=== PATIENT | female | born 1960 | race Caucasian/White ===

== ENCOUNTER 2023-10-27 09:45 | Emergency (ER) | payer BC, SELFPAY ==
[2023-10-27 09:47] VITALS: BP 160/100
[2023-10-27 10:56] VITALS: BMI 22.6
[2023-10-27 11:02] VITALS: BP 130/71
--- NOTE | 2023-10-27 11:06 | ED.GENMED ---
History of Present Illness
General
Chief Complaint: Cough
Time Seen by Provider: 10/27/23 10:19
History of Present Illness
History of Present Illness:
63-year-old female with history of lung CA (s/p chemo, radiation, and immunotherapy) presenting for hemoptysis. Patient reports symptoms started this morning. She had a slight cough, with expectoration of bright red blood. Denies ever having this
in the past. She is not on any blood thinners. Reports that she had a PET scan in April 2023, negative for malignancy. She denies any present chest pain or difficulty breathing. She denies any abdominal pain. She has not been having
significant cough or fever. She follows with [facility]. Denies acute medical complaints
Past History
Past History
ED Past Medical History: GERD and Other (chronic low back pain)
ED Past Surgical History: None
Social History
Tobacco: Smoker
Alcohol: Occasional
Personal: Other (Seperated)
Living: alone
Employment: Employed ([employer])
Phy Exam
Physical Exam
Physical Exam:
GENERAL: Alert , in no apparent distress
EYE: pupils equal and reactive
NECK: Supple, no significant adenopathy.
ENT: o/p clr, mmm.
CARDIAC: Regular rate and rhythm .
LUNGS: Clear breath sounds bilaterally, no acute respiratory distress, no wheezes/rales/rhonchi
ABDOMEN: Soft, without focal tenderness, no r/g
NEUROLOGICAL: Alert and oriented, no focal neuro deficits
SKIN: Warm and dry, skin intact.
MUSCULOSKELETAL: No edema, well perfused.
PSYCH: Normal and appropriate interaction.
Course
Orders/Labs/Results
Orders:
Orders
10/27/23 10:44
Electrocardiogram (*1) Stat
Reason for Study: Other
Other Reason for Exam: chest pain
CT Chest Pe Study Urgent
Comment:
Reason For Exam: hemoptysis, hx L-lung CA
EKG- Treatment ONCE
10/27/23 10:55
Complete Blood Count/With Diff Urgent
Comprehensive Metabolic Panel Urgent
PTT Urgent
Prothrombin Time Urgent
Abnormal Lab Results
10/27/23
10:55
Hct 35.1 L %
(37.0-47.0)
Absolute Lymphs (auto) 0.8 L 10^3/uL
(1.2-3.4)
Neutrophils % 77.3 H %
(42.2-75.2)
Lymphocytes % 14.2 L %
(20.5-51.1)
10/27/23 10:55
10/27/23 10:55
Vital Signs
Initial and Last Documented VS:
Initial Vital Signs
Temp Pulse Resp BP Pulse Ox
99.3 F 116 16 160/100 98
10/27/23 09:47 10/27/23 09:47 10/27/23 09:47 10/27/23 09:47 10/27/23 09:47
Last Documented Vital Signs
Temp Pulse Resp BP Pulse Ox
99.3 F 108 24 115/63 95
10/27/23 09:47 10/27/23 12:36 10/27/23 12:36 10/27/23 12:00 10/27/23 12:15
MDM/Problems Addressed
MDM/Problems Addressed:
63-year-old female with prior history of lung CA presenting for hemoptysis. Vital signs on arrival are significant for hypertension.
On exam, patient well-appearing, resting comfortably, no acute distress or disc. Benign cardiac and pulmonary exam. However given prior history of malignancy with hemoptysis prior to arrival, immediate concern for PE versus recurrence of lung CA.
This visit will obtain laboratory analysis and CT imaging. EKG obtained, nonischemic
13:40 -patient's labs are unremarkable. CT without evidence of PE or recurrence of malignancy. Normal hemoglobin. Patient without any additional episodes of hemoptysis. At this time, likely bronchial irritation, possibly from prior radiation in
the past. Remains hemodynamically stable, feel stable for discharge with continued outpatient oncologic follow-up. Patient has a PET scan next week. Patient feels comfortable with plan. Strict return precautions communicated and patient
verbalized understanding
*EKG
Interpreted by ED Provider?: Yes
EKG Intrepretation Date: 10/27/23
EKG Intrepretation Time: 11:09
Interpretation: normal
Comparison EKG: no changes
Heart Rate: 73
Rate: normal
Rhythm: sinus
[place]: normal axis
Interval: normal interval
QRS Pattern: normal QRS
Ischemia: no ischemia
*Critical Care Note
Total Time (30-74mins, 75-104mins- exclusive of procedures): Not Applicable
ED Attending Note
-
Portions of this chart may have been created with voice recognition software.� Occasional wrong word or��sound alike� substitutions may have occurred due to the inherent limitations of voice recognition software.
Discharge Plan
Departure
Prescriptions:
No Action
lorazepam [Ativan] 0.5 mg Tablet
0.5 mg PO PRN PRN (Reason: insomnia/anxiety)
ibuprofen [Advil] 200 mg Tablet
200 mg PO Q8H PRN (Reason: pain)
vitamin B complex Tablet
1 tab PO DAILY
cholecalciferol (vitamin D3) [Vitamin D3] 25 mcg (1,000 unit) Capsule
25 mcg PO DAILY
calcium lactate 84 mg (648 mg) Tablet
168 mg PO DAILY
Probiotic 3 billion cell Capsule
3,000 mmu cells PO DAILY
cetirizine [Zyrtec] 10 mg Tablet
10 mg PO HS
Referrals:
Pearl Pate CRNP [Family Provider] -
Interventions
Interventions:
*Risk Screen - Suicide Last Done: 10/27/23 09:47
*General Assessment Last Done: 10/27/23 09:47
*Neglect/Abuse Screening Last Done: 10/27/23 09:47
ED- Fall Risk Assessment Last Done: 10/27/23 10:50
*ED COVID-19 Vaccine History Last Done: 10/27/23 11:01
ED- Pulmonary Assessment Last Done: 10/27/23 10:50
Discharge Date and Time
Print Language: ALGERIAN
[2023-10-27 11:08] LABS: % Basophils 0.5 % (0-2); % Eosinophils 0.7 % (0-6); % Immature Granulocytes 0.2 % (0-0.5); % Lymphocytes 14.2 % (20.5-51.1); % Monocytes 7.1 % (1.7-9.3); % Neutrophils 77.3 % (42.2-75.2); Absolute Lymphocytes 0.8 10^3/uL (1.2-3.4); Absolute Monocytes 0.4 10^3/uL (0.1-0.6); Absolute Neutrophils 4.6 10^3/uL (1.4-6.5); Hematocrit 35.1 % (37.0-47.0); Hemoglobin 12.1 g/dL (12.0-16.0); Mean Corp Hgb Conc. 34.5 g/dL (33.0-37.0); Mean Corpuscular Hgb 28.3 pg (27.0-31.0); Mean Platelet Volume 8.6 fL (7.4-10.4); Nucleated Red Blood Cells % 0 %; Platelet Count 221 10^3/uL (130-400); Red Blood Cell Count 4.28 10^6/uL (4.20-5.40); White Blood Cell Count 5.9 10^3/uL (4.8-10.8)
[2023-10-27 11:18] LABS: APTT 27.3 Sec (23.4-35.0); INR 1.05; PT 13.7 Sec (11.4-14.6)
[2023-10-27 11:29] LABS: ALT (SGPT) 23 U/L (0-35); AST (SGOT) 33 U/L (14-36); Albumin 4.4 g/dl (3.5-5.0); Alkaline Phosphatase 86 U/L (38-126); Blood Urea Nitrogen 13 mg/dl (7-17); Calcium 9.5 mg/dl (8.4-10.2); Carbon Dioxide 27 mmol/L (22-30); Chloride 101 mmol/L (98-107); Estimated Creatinine Clearance 72 ml/min; Glucose 98 mg/dl (70-99); Potassium 4.5 mmol/L (3.5-5.1); Sodium 135 mmol/L (135-145); Total Bilirubin 0.5 mg/dl (0.2-1.3); Total Protein 7.1 g/dl (6.3-8.2); eGFR > 60.00
[2023-10-27 12:00] VITALS: BP 115/63
[2023-10-27 13:00] VITALS: BP 113/67
[2023-10-27 14:00] VITALS: BP 130/63
== END 2023-10-27 14:15 | disposition home or self-care (01) ==
LOC: EMR 09:45
PROVIDERS: EMERGENCY PHYSICIAN Student in an Organized Health Care Education/Training Program; FAMILY PHYSICIAN Nurse Practitioner
DX: R04.2 Hemoptysis (principal); F17.200 Nicotine dependence, unspecified, uncomplicated
CPT/HCPCS: 99285; 71275; 80053; 85025; 85610; 85730; 93005; Q9967

== ENCOUNTER → 2023-11-04 08:12 | Outpatient (REF) | payer BC, SELFPAY | LOC: PET 08:12 | PROVIDERS: ATTENDING PHYSICIAN Internal Medicine Hematology & Oncology | DX: C34.12 Malignant neoplasm of upper lobe, left bronchus or lung (principal) | CPT/HCPCS: 78815; A9552 ==

== ENCOUNTER → 2023-12-23 14:26 | Outpatient (REF) | payer BC, SELFPAY | LOC: HWRCS 14:26 | PROVIDERS: ATTENDING PHYSICIAN Nurse Practitioner | DX: I70.90 Unspecified atherosclerosis (principal) | CPT/HCPCS: 93306 ==

== ENCOUNTER → 2024-03-07 09:22 | Outpatient (REF) | payer BC, SELFPAY | LOC: PET 09:22 | PROVIDERS: ATTENDING PHYSICIAN Internal Medicine Hematology & Oncology | DX: C34.12 Malignant neoplasm of upper lobe, left bronchus or lung (principal) | CPT/HCPCS: 78815; A9552 ==

== ENCOUNTER → 2024-03-28 07:52 | Outpatient (REF) | payer BC, SELFPAY | LOC: HWRAD 07:52 | PROVIDERS: ATTENDING PHYSICIAN Surgery; REFERRING PHYSICIAN Internal Medicine Hematology & Oncology | DX: C34.12 Malignant neoplasm of upper lobe, left bronchus or lung (principal) | CPT/HCPCS: 71260; Q9967 ==

== ENCOUNTER → 2024-06-05 14:30 | Outpatient (REF) | payer BC, SELFPAY | LOC: HWWDC 14:30 | PROVIDERS: ATTENDING PHYSICIAN Nurse Practitioner Family | DX: Z12.31 Encounter for screening mammogram for malignant neoplasm of breast (principal) | CPT/HCPCS: 77063; 77067 ==

== ENCOUNTER → 2024-08-09 14:25 | Outpatient (REF) | payer BC, SELFPAY | LOC: MRI 14:25 | PROVIDERS: ATTENDING PHYSICIAN Psychiatry & Neurology Neurology; FAMILY PHYSICIAN Internal Medicine | DX: G93.5 Compression of brain (principal) | CPT/HCPCS: 70553; 72141; A9575 ==

== ENCOUNTER 2025-02-16 16:26 | Emergency (ER) | payer BC, MEDICARE, SELFPAY ==
[2025-02-16 16:33] VITALS: BP 145/91
[2025-02-16 16:52] LABS: Hematocrit 36.1 % (37.0-47.0); Hemoglobin 11.9 g/dL (12.0-16.0); Mean Corp Hgb Conc. 33.0 g/dL (33.0-37.0); Mean Corpuscular Volume 88.5 fL (81.0-99.0); Nucleated Red Blood Cells % 0 %; Platelet Count 219 10^3/uL (130-400); Red Cell Dist. Width 13.1 % (11.5-14.5)
[2025-02-16 17:00] VITALS: BMI 23.7
[2025-02-16 17:04] LABS: INR 0.99; PT 13.4 Sec (11.4-14.6)
[2025-02-16 17:16] LABS: ALT (SGPT) 26 U/L (0-35); AST (SGOT) 38 U/L (14-36); Albumin 4.5 g/dl (3.5-5.0); Alkaline Phosphatase 77 U/L (38-126); Blood Urea Nitrogen 12 mg/dl (7-17); Calcium 9.1 mg/dl (8.4-10.2); Carbon Dioxide 23 mmol/L (22-30); Chloride 103 mmol/L (98-107); Estimated Creatinine Clearance 71 ml/min; Glucose 109 mg/dl (70-99); Potassium 4.0 mmol/L (3.5-5.1); Sodium 135 mmol/L (135-145); Total Protein 7.0 g/dl (6.3-8.2); Troponin I 0.017 ng/ml; eGFR > 60.00
--- NOTE | 2025-02-16 17:16 | ED.GENMED ---
History of Present Illness
General
Chief Complaint: Heart Rate Problem
Source: patient
Exam Limitations: none
Time Seen by Provider: 02/16/25 16:59
History of Present Illness
History of Present Illness:
See MDM
Past History
Past History
ED Past Medical History: GERD and Other (chronic low back pain)
ED Past Surgical History: None
Social History
Tobacco: Smoker
Alcohol: Occasional
Personal: Other (Seperated)
Living: alone
Employment: Employed ([employer])
Phy Exam
Physical Exam
Physical Exam:
See MDM
Scores
[id number] Score for Afib Stroke Risk
Age in Years (65=0, 65-74=1, >/=75=2): 65-74
Sex (Female=+1): Female
Congestive Heart Failure History (Yes=+1): No
Hypertension History (Yes=+1): No
Stroke/TIA/Thromboembolism History (Yes=+2): No
Vascular Disease History (Yes=+1): No
Diabetes Mellitus (Yes=+1): No
Score: 2
Anticoagulation Recommendations: Recommend anticoagulation (as validated in nonvalvular fib)
Course
Orders/Labs/Results
Orders:
Orders
02/16/25 16:31
Electrocardiogram (*1) Urgent
Reason for Study: Chest Pain
EKG- Treatment ONCE
02/16/25 16:44
Complete Blood Count/With Diff Urgent
Comprehensive Metabolic Panel Urgent
Prothrombin Time Urgent
Troponin I Urgent
Abnormal Lab Results
02/16/25
16:44
RBC 4.08 L 10^6/uL
(4.20-5.40)
Hgb 11.9 L g/dL
(12.0-16.0)
Hct 36.1 L %
(37.0-47.0)
Absolute Lymphs (auto) 1.0 L 10^3/uL
(1.2-3.4)
Absolute Monos (auto) 0.7 H 10^3/uL
(0.1-0.6)
Lymphocytes % 16.5 L %
(20.5-51.1)
Monocytes % 10.4 H %
(1.7-9.3)
Glucose 109 H mg/dl
(70-99)
AST 38 H U/L
(14-36)
02/16/25 16:44
02/16/25 16:44
Vital Signs
Initial and Last Documented VS:
Initial Vital Signs
Temp Pulse Resp BP Pulse Ox
98.5 F 133 18 145/91 97
02/16/25 16:33 02/16/25 16:33 02/16/25 16:33 02/16/25 16:33 02/16/25 16:33
Last Documented Vital Signs
Temp Pulse Resp BP Pulse Ox
98.5 F 133 18 145/91 97
02/16/25 16:33 02/16/25 16:33 02/16/25 16:33 02/16/25 16:33 02/16/25 17:17
MDM/Problems Addressed
Differential Diagnosis Includes:
Note:
CHIEF COMPLAINT(S)
Palpitations with a heart rate increase to 183 beats per minute.
HISTORY OF PRESENT ILLNESS
The patient is a 64-year-old female with a past occurrence of palpitations and a rapid heart rate. The patient reports experiencing a sudden increase in heart rate to 183 beats per minute earlier today. She notes that the episode began after having
a meal and a cup of coffee, followed by activity at home. She describes trying to relax and self-manage using deep breathing to no avail. The heart rate remained elevated, decreasing to the 150s, but would elevate with movement. She denies recent
cardiology follow-up, except for a prior heart monitor showing no abnormal findings, and no medications taken other than past intermittent use of Lorazepam. She experiences anxiety prior to these episodes and attempts not to panic when they occur.
She did not use Lorazepam today. Currently, her heart rate decreased to the 130s. Previous episodes were managed with Lorazepam effectively.
CHRONIC MEDICAL CONDITIONS SIGNIFICANTLY AFFECTING CARE
Chronic conditions affecting care: Anxiety
SOCIAL DETERMINANTS OF HEALTH
The patient voluntarily stopped taking medications since 2017, which potentially impacts her healthcare management.
PHYSICAL EXAM
General: Alert, no acute distress.
Skin: Warm, dry.
Head: Normocephalic, atraumatic
Neck: Appears supple, trachea midline.
Eyes, Ears, Nose, Mouth, and Throat: Moist mucous membranes
Cardiovascular: No signs of cyanosis. Tachycardic and regular
Respiratory: Respirations are non-labored.
Abdomen: Non-distended
Musculoskeletal: No deformities. No leg edema
Neurological: No focal neurological deficit observed.
Psychiatric: Cooperative, appropriate mood and affect.
ELECTROCARDIOGRAM (EKG)
My independent EKG interpretation is a fast, normal sinus rate with minimal variation, indicating potential atrial flutter.
PLAN
Patient auto converted. Discussed case with cardiology
DIFFERENTIAL DIAGNOSIS
The Differential Diagnosis includes, in no particular order and is not limited to:
- Atrial flutter
- Atrial fibrillation
- Supraventricular tachycardia
- Sinus tachycardia
- Anxiety-induced tachycardia
- Hyperthyroidism
- Electrolyte imbalance-induced arrhythmia
- Paroxysmal supraventricular tachycardia
- Valvular heart disease
- Cardiomyopathy
SUMMARY OF ENCOUNTER
The patient presented to the emergency department with rapid heart rate and palpitations. Previous cardiac evaluations showed no structural heart issues, categorized as an electrical issue by the customs guard. The primary goal was to evaluate and
control the rapid heart rate with blood pressure medication and further explore underlying rhythm disturbances.
MANAGEMENT OF THE PATIENTS CARE WAS DISCUSSED WITH
Contact was made with the cardiology group associated with Dr. Ian Polanco for further recommendations regarding management and potential need for initiation of anticoagulation, given the rhythm concerns.
INDEPENDENT REVIEW OF LABS AND INTERPRETATION OF TESTS
Blood work pending for evaluation of potential electrolyte imbalance.
MEDICATION RECONCILIATION
- No current prescriptions or recent usage, previous sporadic use of Lorazepam.
MEDICAL DECISION MAKING
- Number and Complexity of Problems Addressed: Chronic conditions affecting care [Anxiety] The Differential Diagnosis includes, in no particular order and is not limited to: Atrial flutter, Atrial fibrillation, Supraventricular tachycardia, Sinus
tachycardia, Anxiety-induced tachycardia, Hyperthyroidism, Electrolyte imbalance-induced arrhythmia, Paroxysmal supraventricular tachycardia, Valvular heart disease, Cardiomyopathy.
- Data:
Category 1:
- My independent interpretation of EKG, showing a fast, normal sinus rate indicating potential atrial flutter.
Category 3:
- Discussion of management with the customs guard associated with Dr. Ian Polanco regarding patient�s care.
- Risk:
Care significantly affected by Social Determinants of Health: The patient�s decision to not use prescribed medications may influence care management and recurrence of tachycardia episodes.
EKG
My independent EKG interpretation is:
- Time of EKG: Not specified
- Rhythm: Undetermined
- Heart Rate: 134 beats per minute (Tachycardia)
- [place] Interval: Not specified
- QRS Duration: Not specified
- QT Interval: Not specified
- [place]: Normal
- Abnormalities: No ST elevation
CARE-UPDATE
02/16/25 - 17:27
The patients heart rate spontaneously converted to a normal sinus rhythm. Discussion with cardiology suggests potential diagnoses of SVT or AV-danna tachycardia, negating the need for anticoagulation at this point presents, per cardiology.
Cardiology recommends starting metoprolol 25 mg, which the patient is willing to take on an as-needed basis after discussing the risks and benefits. The patient is added to the cardiac callback tracker for a follow-up consultation with the
customs guard.
SUMMARY OF ENCOUNTER
The patient, a 64-year-old female, presented to the emergency department with rapid heart rate and palpitations. Previous cardiac evaluations indicated no structural heart issues, categorized as an electrical issue by the customs guard. Upon arrival,
an EKG was performed showing sinus tachycardia with concern for potential atrial flutter; however, the patients heart rate spontaneously converted to a normal sinus rhythm. Cardiology was consulted and suggested a more likely diagnosis of atrial
tachycardia rather than atrial fibrillation. It was determined that anticoagulation was not needed at this time. Management focused on heart rate control with potential initiation of metoprolol.
DISPOSITION
Discharge
ASSESSMENT
Likely atrial tachycardia with episodic palpitations.
MANAGEMENT OF THE PATIENTS CARE WAS DISCUSSED WITH
Discussion with the cardiology team regarding the management plan and the decision not to start anticoagulation.
PLAN
Prescribe metoprolol 25 mg on an as-needed basis. Recommend follow-up with cardiology.
INDEPENDENT REVIEW OF LABS AND INTERPRETATION OF TESTS
My independent EKG interpretation is sinus tachycardia, indicating potential atrial flutter.
PATIENT EDUCATION AND COUNSELING
The patient was informed about the nature of the condition, the potential diagnosis of atrial tachycardia, and the plan to use metoprolol as needed to control heart rate. The risks and benefits of the medication were discussed, emphasizing the
importance of follow-up care with the customs guard for ongoing management.
FOLLOW-UP INSTRUCTIONS
The patient is advised to schedule a follow-up with the customs guard for further evaluation and management.
MEDICATION RECONCILIATION
Prescribe metoprolol 25 mg to be taken as needed for heart rate control.
MEDICAL DECISION MAKING
- Complexity of Data Reviewed: Chronic conditions affecting care [Anxiety]. Differential Diagnosis includes atrial flutter, atrial fibrillation, supraventricular tachycardia, sinus tachycardia, anxiety-induced tachycardia, hyperthyroidism,
electrolyte imbalance-induced arrhythmia, paroxysmal supraventricular tachycardia, valvular heart disease, cardiomyopathy.
- Data:
Category 1: My independent interpretation of EKG, showing sinus tachycardia with potential atrial flutter.
Category 3: Discussion of management with the cardiology team regarding patients care.
- Risk: Prescription medication was prescribed, and care is significantly affected by Social Determinants of Health, as the patient has not been using prescribed medications consistently since 2017.
DIAGNOSIS
- Atrial Tachycardia: ICD-10 Code I47.1
*Pulse Oximetry
SaO2: 97
Oxygen Mode of Delivery: Room air
Patient hypoxic: no
*Critical Care Note
Total Time (30-74mins, 75-104mins- exclusive of procedures): Not Applicable
ED Attending Note
-
Portions of this chart may have been created with voice recognition software.� Occasional wrong word or��sound alike� substitutions may have occurred due to the inherent limitations of voice recognition software.
Discharge Plan
Departure
Patient Disposition: Home (Routine Discharge)
Date of Disposition: 02/16/25
Time of Disposition: 17:27
Patient with high blood pressure during this ER visit?: No
Discharge Problem:
Atrial tachycardia
Instructions: Tachycardia, Chest Pain DCA Follow Up
Prescriptions:
New
metoprolol succinate [Toprol XL] 25 mg tablet extended release 24 hr
25 mg PO DAILY Qty: 30 0RF
No Action
lorazepam [Ativan] 0.5 mg Tablet
0.5 mg PO PRN PRN (Reason: insomnia/anxiety)
ibuprofen [Advil] 200 mg Tablet
200 mg PO Q8H PRN (Reason: pain)
vitamin B complex Tablet
1 tab PO DAILY
cholecalciferol (vitamin D3) [Vitamin D3] 25 mcg (1,000 unit) Capsule
25 mcg PO DAILY
calcium lactate 84 mg (648 mg) Tablet
168 mg PO DAILY
Probiotic 3 billion cell Capsule
3,000 mmu cells PO DAILY
cetirizine [Zyrtec] 10 mg Tablet
10 mg PO HS
Referrals:
Ian Polanco MD [Active, Cardiology]
Activity Restrictions/Additional Instructions:
Please return for any worsening symptoms.
You may return at any time if you have further concerns.
Please follow up with your doctor at the first available appointment, preferably this week.
You were placed on the cardiac callback tracker. Someone from their office should call you in the next few days. If you do not hear from them in the next few days, please give them a call.
Thank you for choosing [facility].
Interventions
Interventions:
*Risk Screen - Suicide Last Done: 02/16/25 16:33
*General Assessment Last Done: 02/16/25 16:33
*Neglect/Abuse Screening Last Done: 02/16/25 16:33
ED- Cardiac Assessment Last Done: 02/16/25 17:00
ED- Pulmonary Assessment Last Done: 02/16/25 17:00
Discharge Date and Time
Print Language: UPPER SORBI[place]
== END 2025-02-16 18:57 | disposition home or self-care (01) ==
LOC: EMR 16:26
PROVIDERS: Emergency Medicine; EMERGENCY PHYSICIAN Student in an Organized Health Care Education/Training Program; FAMILY PHYSICIAN Family Medicine
DX: I47.19 Other supraventricular tachycardia (principal); K21.9 Gastro-esophageal reflux disease without esophagitis; M54.9 Dorsalgia, unspecified; G89.29 Other chronic pain; F17.200 Nicotine dependence, unspecified, uncomplicated; F41.9 Anxiety disorder, unspecified; Z91.128 Patient's intentional underdosing of medication regimen for other reason; Z88.5 Allergy status to narcotic agent
CPT/HCPCS: 99284; 80053; 84484; 85025; 85610; 93005

== ENCOUNTER → 2025-02-26 14:33 | Outpatient (REF) | payer MEDICARE, BC, SELFPAY | LOC: HWRAD 14:33 | PROVIDERS: ATTENDING PHYSICIAN Physician Assistant | DX: L40.9 Psoriasis, unspecified (principal); M25.50 Pain in unspecified joint | CPT/HCPCS: 73120 ==